=== PATIENT | male | born 1985 | race African-American/Black ===

== ENCOUNTER 2019-09-26 12:11 | Emergency (ER) | payer OTHER ==
--- NOTE | 2019-09-26 13:44 | UC ---
FLU HPI - HPI Summary HPI Summary: 33 yo male presents with GI symptoms. He tells me that this morning he woke up with generalized abdominal cramping. He vomited twice and had an episode of diarrhea. Since that time has vomited about once every hour and feels nauseous with loose stools. He is able to drink water, but had not had anything to eat. [place] fine last night and reports no new foods. Denies fever, chills, SOB, chest pain, dysuria. - History of Current Complaint Chief Complaint: UCGI Stated Complaint: NAUSEA/VOMITING/RUIZ/STOMACHE ACHE Time Seen by Provider: 09/26/19 13:44 Hx Obtained From: Patient Onset/Duration: Sudden Onset Severity Currently: Moderate Severity Initially: Moderate Pain Intensity: 7 Pain Scale Used: 0-10 Numeric - Allergy/Home Medications Allergies/Adverse Reactions: Allergies Allergy/AdvReac Type Severity Reaction Status Date / Time No Known Allergies Allergy Verified 09/26/19 13:37 PMH/Surg Hx/FS Hx/Imm Hx - Additional Past Medical History Additional PMH: None - Surgical History Surgical History: None - Family History Known Family History: Positive: None - Social History Occupation: Employed Full-time Lives: With Family Alcohol Use: Occasionally Substance Use Type: None Smoking Status (MU): Never Smoked Tobacco Review of Systems All Other Systems Reviewed And Are Negative: No Constitutional: Positive: Negative Skin: Positive: Negative Eyes: Positive: Negative ENT: Positive: Negative Respiratory: Positive: Negative Cardiovascular: Positive: Negative Gastrointestinal: Positive: Abdominal Pain, Vomiting, Diarrhea, Nausea Genitourinary: Positive: Negative Neurological/Mental Status: Positive: Negative Psychological: Positive: Negative Physical Exam - Summary Physical Exam Summary: GENERAL: NAD. WDWN. No pain distress. SKIN: No rashes, sores, lesions, or open wounds. NECK: Supple. Nontender. No lymphadenopathy. CHEST: CTAB. No r/r/w. No accessory muscle use. Breathing comfortably and in no distress. CV: RRR. Pulses intact. Cap refill <2seconds ABDOMEN: Soft. NTTP. No distention or guarding. No CVA tenderness. Bowel sounds hyperactive NEURO: Alert. PSYCH: Age appropriate behavior. Triage Information Reviewed: Yes Vital Signs: Initial Vital Signs Temp 98.6 F 09/26/19 13:35 Pulse 96 02/11/20 13:35 Resp 16 09/26/19 13:35 BP 110/73 09/26/19 13:35 Pulse Ox 100 09/26/19 13:35 Laboratory Tests 09/26/19 13:47 Influenza A (Rapid) Negative Influenza B (Rapid) Negative Vital Signs Reviewed: Yes Flu Course/Dx - Course Course Of Treatment: POC flu negative. Suspect gastroenteritis. In the clinic pt was given NS, toradol, zofran, and pepcid for his symptoms and felt much better. He was able to tolerate daniel francine and crackers. Had no episodes of vomiting or diarrhea while in the clinic. - Differential Dx/Diagnosis Provider Diagnosis: Gastroenteritis Discharge ED - Sign-Out/Discharge Documenting (check all that apply): Patient Departure All imaging exams completed and their final reports reviewed: No Studies - Discharge Plan Condition: Stable Disposition: HOME Prescriptions: Ondansetron ODT TAB* [Zofran 4 MG Odt TAB*] 4 mg PO Q8H PRN #9 tab.odt PRN Reason: Nausea Patient Education Materials: Gastroenteritis (ED) Forms: *Work Release Referrals: No Primary Care Phys,NOPCP [Primary Care Provider] - Additional Instructions: If you develop a fever, shortness of breath, chest pain, new or worsening symptoms - please call your PCP or go to the ED immediately. Rest and drink plenty of clear fluids. Advance your diet as tolerated. - Billing Disposition and Condition Condition: STABLE Disposition: Home
[2019-09-26] MEDS ORDERED: Famotidine IV* 10 MG/ML 2 ML (20 mg) IV SLOW PU ONE (13:54)
[2019-09-26] MEDS ORDERED: Ketorolac INJ* 30 MG/ML 1 ML VIAL IV ONE (13:54)
[2019-09-26] MEDS ORDERED: Ondansetron INJ* 2 MG/ML VIAL IV ONE (13:54)
[2019-09-26] MEDS ORDERED: NS 0.9% 1000 ML** 1,000 ML IV ONE (13:54)
[2019-09-26 13:59] LABS: Influenza A Molecular Negative (Negative); Influenza B Molecular Negative (Negative)
[2019-09-26 15:31] VITALS: BP 118/71
== END 2019-09-26 15:25 | disposition home or self-care (01) ==
LOC: UCCORT 12:11
DX: K52.9 Noninfective gastroenteritis and colitis, unspecified (principal)
CPT/HCPCS: 96361; 96374; 96375; 99202; G0463; J1885; J2405